=== PATIENT | female | born 1990 | race African-American/Black ===

== ENCOUNTER 2018-03-16 23:55 | Emergency (ER) | payer MEDICARE ==
[~2018-03-16] VITALS: Ht 157.5 cm; Wt 60.0 kg
[2018-03-17 01:29] VITALS: BP 139/89
== END 2018-03-17 01:29 | disposition home or self-care (01) ==
LOC: ED 03-17
DX: R07.2 Precordial pain (principal); R07.89 Other chest pain
CPT/HCPCS: 71045; 93005; 99284

== ENCOUNTER 2018-08-09 17:22 | Emergency (ER) | payer MEDICARE ==
[~2018-08-09] VITALS: Ht 157.5 cm; Wt 61.0 kg
[2018-08-09 17:40] VITALS: BP 125/83
[2018-08-09] MEDS ORDERED: IBUPROFEN 200 MG TABLET PO ONE (18:00)
[2018-08-09] MEDS ORDERED: IBUPROFEN 200 MG TABLET ONE (18:03)
== END 2018-08-09 18:40 | disposition home or self-care (01) ==
LOC: ED 18:34
DX: M77.9 Enthesopathy, unspecified (principal)
CPT/HCPCS: 29260; 99284